=== PATIENT | male | born 2000 | race Caucasian/White ===

== ENCOUNTER 2024-04-24 09:15 | Emergency (ER) | payer OTHER, SELFPAY ==
--- NOTE | ~2024-04-24 | XR_ITS ---
EXAMINATION: XR chest 2V DATE: 04/24/2024 09:36 INDICATION: Chest pain. TECHNIQUE: Frontal and lateral views of the chest were obtained. COMPARISON: None. FINDINGS: There is no pneumonia, pleural effusion, or pneumothorax. The heart size is normal. IMPRESSION: 1. No acute cardiopulmonary disease. Reviewed, dictated and finalized at location A.
--- NOTE | ~2024-04-24 | CT_ITS ---
EXAMINATION: CT abdomen pelvis w con DATE: 04/24/2024 13:23 INDICATION: Right upper abdominal pain. Chest pain. Vomiting. TECHNIQUE: Computed tomography (CT) of the abdomen and pelvis was performed with 100 mL Omnipaque 350 intravenous contrast. Automated exposure control and iterative reconstruction technique were employe d. The dose-length product was 489.72 mGy-cm. COMPARISON: None. FINDINGS: The visualized portions of the lung bases demonstrate mild atelectasis. No pleural effusion . The heart size is normal. No pericardial effusion. There is a small sliding hiatal hernia. The live r, gallbladder, spleen, pancreas, adrenal glands, and kidneys are normal. There are bilateral inguina l hernias containing fat. There are no dilated loops of bowel. The appendix is normal. There are no p athologically enlarged lymph nodes. There is no free intraperitoneal fluid. There is mild lumbar spon dylosis. IMPRESSION: 1. Small sliding hiatal hernia. Reviewed, dictated and finalized at location A.
--- NOTE | 2024-04-24 09:16 | ECG_ITS ---
Test Date: 2024-04-24 09:23:57 Measurements Intervals [place] Rate: 71 P: 50 ME: 145 QRS: 52 QRSD: 102 T: 51 QT: 402 QTc: 437 Interpretive Statements SINUS RHYTHM WITH MARKED SINUS ARRHYTHMIA NORMAL ECG No previous ECG available for comparison Electronically Signed On 04-25-2024 08:47:14 CDT by Darrel Munson M.D.
[2024-04-24 09:21] VITALS: PULSE 88; RESP 16; TEMP 36.3; O2SAT 99
[2024-04-24 09:33] LABS: Basophils Absolute Auto 0.1 K/mm3 (0.0-0.1); Basophils Percent Auto 0.4 % (0.2-1.2); Hematocrit 47.8 % (42.0-52.0); Hemoglobin 17.2 g/dL (14.0-18.0); Immature Granulocyte Absolute 0.15 K/mm3 (0.00-0.031); Immature Granulocyte Percent A 0.7 % (0-0.5); Lymphocytes Absolute Auto 2.34 K/mm3 (0.9-3.2); Lymphocytes Percent Auto 10.8 % (18.3-44.2); Mean Corpuscular Hemoglobin 32.6 pg (26-34); Mean Corpuscular Volume 90.7 fl (80-100); Mean Platelet Volume 8.5 fl (7.4-10.4); Monocytes Absolute Auto 2.1 K/mm3 (0.1-0.6); Monocytes Percent Auto 9.7 % (2.6-8.5); Neutrophils Percent Auto 78.4 % (45.5-73.1); Platelet Count Result 386 k/mm3 (150-375); Red Blood Count 5.27 M/mm3 (4.6-6.20); Red Cell Distribution Width 13.3 % (11.5-14.5); White Blood Count 21.7 K/mm3 (4.5-10.0)
[2024-04-24 09:43] LABS: INR 0.9
[2024-04-24 09:44] LABS: Alanine Aminotransferase 31 U/L (6-50); Albumin Level 5.3 g/dL (3.5-5.1); Alkaline Phosphatase 121 U/L (38-126); Anion Gap 22 mmol/L (4-12); Aspartate Amino Transferase 37 U/L (17-59); Bilirubin,Total 1.6 mg/dL (0.2-1.3); Blood Urea Nitrogen 11 mg/dL (9-20); Calcium 10.1 mg/dL (8.4-10.2); Carbon Dioxide 17 mmol/L (22-30); Chloride 96 mmol/L (98-107); Estimated CRCL calculation 133 ml/min; Estimated Glomerular Filt Rate > 60; Glucose 123 mg/dL (65-110); Lipase 51 U/L (23-300); Partial Thromboplastin Time 25.6 Seconds (22.3-36.8); Potassium 3.1 mmol/L (3.4-5.0); Sodium 135 mmol/L (137-145)
[2024-04-24 09:56] LABS: Troponin I < 0.012 ng/mL (0.000-0.034)
[2024-04-24] MEDS: SODIUM CHLORIDE 0.9% IV 1,000 ML 999 ML IV CONT (10:15)
[2024-04-24] MEDS: MORPHINE SULFATE (*CRX) 4 MG/ML INJ IV PUSH (10:15)
[2024-04-24] MEDS: PANTOPRAZOLE SODIUM IV 40 MG VIAL IV PUSH (10:15)
[2024-04-24] MEDS: ONDANSETRON INJ 4 MG/2 ML VIAL IV PUSH (10:16)
--- NOTE | 2024-04-24 12:29 | ECG_ITS ---
Test Date: 2024-04-24 12:29:30 Measurements Intervals [place] Rate: 84 P: 50 CO: 120 QRS: 54 QRSD: 98 T: 54 QT: 410 QTc: 485 Interpretive Statements SINUS RHYTHM WITH MARKED SINUS ARRHYTHMIA NORMAL ELECTROCARDIOGRAM Compared to ECG 04/24/2024 09:23:57 No significant changes Electronically Signed On 04-25-2024 08:49:58 CDT by Darrel Munson M.D.
[2024-04-24] MEDS: LORazepam INJ (*CRX) 2 MG/ML VIAL 0.5 MG IV PUSH (12:45)
[2024-04-24 12:51] VITALS: BP 135/89; PULSE 68; RESP 20; O2SAT 100
[2024-04-24 13:10] LABS: Troponin I < 0.012 ng/mL (0.000-0.034)
[2024-04-24 14:13] LABS: Add Urine Microscopic? YES; Appearance Urine Clear (Clear); Bacteria Urine None Seen /hpf; Bilirubin Urine Negative (Negative); Blood Urine Negative (Negative); Color Urine Yellow (Yellow); Glucose Urine UA Negative (Negative); Ketones Urine 4+ mg/dL (Negative); Leukocyte Esterase Ur Negative LEU/UL (Negative); Nitrate Urine Negative (Negative); Non Pathogenic Casts 0-2; Protein Urine Trace mg/dL (Negative); RBC Urine 0-2 /hpf (0-2); Specific Grav Ur 1.045 (1.001-1.035); Squamous Epithelial Cell Urine None Seen /hpf (Few); Urobilinogen Urine 0.2 mg/dL (<2.0); WBC Urine 0-5 /hpf (0-3)
--- NOTE | 2024-04-24 14:34 | ED.GENADULT ---
HPI - General Adult General Chief complaint: Chest Pain Stated complaint: chest pain Time Seen by Provider: 04/24/24 09:17 History of Present Illness HPI narrative: Patient is a 23-year-old male who presents ER with multiple complaints. Is having epigastric pain chest pain. So she had with vomiting. Began overnight. Associated diarrhea. Reports he has been drinking hard liquor over last 4 days. He drinking a 750 mL bottle of vodka 2 nights ago. No blood in his stool or emesis. No history of alcohol withdrawal. Related Data Allergies Allergy/AdvReac Type Severity Reaction Status Date / Time No Known Allergies Allergy Verified 04/24/24 09:25 Review of Systems Review of Systems: All systems reviewed & are unremarkable except as noted in HPI and below Constitutional: Constitutional: Reports no additional constitutional complaints ENT: Reports system reviewed and no additional complaints, except as documented Cardiovascular: Cardiovascular: Reports no additional cardiovascular complaints Respiratory: Respiratory: Reports no additional respiratory complaints Gastrointestinal: Gastrointestinal: Reports abdominal pain, Reports diarrhea, Reports nausea and Reports vomiting Genitourinary: Genitourinary: Reports no additional male genitourinary complaints [facility] Past Medical History Medical History (Updated 04/24/24 @ 14:39 by Thom Hunt MD) Anxiety Surgical History Surgical History (Updated 04/24/24 @ 14:39 by Thom Hunt MD) No history of previous surgery Social History Social History (Updated 04/24/24 @ 14:39 by Thom Hunt MD) Alcohol intake: current Exam Narrative: GENERAL: Fatigue-appearing, well-nourished, and in no acute distress. HEAD: Normocephalic, atraumatic. ENT: Mucous membranes moist. NECK: Supple. CHEST: Clear to auscultation. No respiratory distress. HEART: Regular rate and rhythm. Normal peripheral pulses. ABDOMEN: Soft, nontender, nondistended. EXTREMITIES: Normal range of motion. No edema. SKIN: Warm, dry, no rash. NEURO: Alert and oriented x3. PSYCH: Normal mood and affect. Course Course Emergency Course: Patient resting comfortably. Feels improved after IV fluid and antiemetics as well as an anxiety medication. Educated about lab and imaging results. Vital Signs Vital signs: Vital Signs Temperature 97.4 F L 04/24/24 09:21 Pulse Rate 88 04/24/24 09:21 Respiratory Rate 16 04/24/24 09:21 Pulse Oximetry 99 04/24/24 09:21 Temperature 97.4 F L 04/24/24 09:21 Pulse Rate 68 04/24/24 12:51 Respiratory Rate 20 04/24/24 12:51 Blood Pressure 135/89 04/24/24 12:51 Pulse Oximetry 100 04/24/24 12:51 Medical Decision Making Vital Signs Vital Signs: Vital Signs Temperature 97.4 F L 04/24/24 09:21 Pulse Rate 88 04/24/24 09:21 Respiratory Rate 16 04/24/24 09:21 Pulse Oximetry 99 04/24/24 09:21 Temperature 97.4 F L 04/24/24 09:21 Pulse Rate 68 04/24/24 12:51 Respiratory Rate 20 04/24/24 12:51 Blood Pressure 135/89 04/24/24 12:51 Pulse Oximetry 100 04/24/24 12:51 Lab Data 04/24/24 09:29 04/24/24 09:29 Labs: Lab Results 04/24/24 04/24/24 04/24/24 Range/Units 09:29 12:43 14:03 WBC 21.7 H (4.5-10.0) K/mm3 RBC 5.27 (4.6-6.20) M/mm3 Hgb 17.2 (14.0-18.0) g/dL Hct 47.8 (42.0-52.0) % MCV 90.7 (80-100) fl MCH 32.6 (26-34) pg MCHC 36.0 (32-36) g/dl RDW 13.3 (11.5-14.5) % Plt Count 386 H (150-375) k/mm3 MPV 8.5 (7.4-10.4) fl Immature Gran % (Auto) 0.7 H (0-0.5) % Neut % (Auto) 78.4 H (45.5-73.1) % Lymph % (Auto) 10.8 L (18.3-44.2) % [place] % (Auto) 9.7 H (2.6-8.5) % Eos % (Auto) 0.0 (0-4.4) % Baso % (Auto) 0.4 (0.2-1.2) % Lymph # (Auto) 2.34 (0.9-3.2) K/mm3 [place] # (Auto) 2.1 H (0.1-0.6) K/mm3 Eos # (Auto) 0.0 (0-0.3) K/mm3 Baso # (Auto) 0.1 (
[2024-04-24 14:39] VITALS: BP 139/79; PULSE 77; RESP 16; TEMP 36.6; O2SAT 100
== END 2024-04-24 14:40 | disposition home or self-care (01) ==
PROVIDERS: Emergency Provider Emergency Medicine; PCP Physician Assistant
DX: R11.2 Nausea with vomiting, unspecified (principal); K44.9 Diaphragmatic hernia without obstruction or gangrene
CPT/HCPCS: 36415; 71046; 74177; 80053; 81001; 83690; 84484; 85025; 85610; 85730; 93005; 96361; 96374; 96375; 99284; J2060; J2270; J2405; J2470; J7030; Q9967

== ENCOUNTER 2024-08-20 12:18 | Emergency (ER) | payer OTHER, SELFPAY ==
--- NOTE | ~2024-08-20 | CT_ITS ---
EXAMINATION: CT abdomen pelvis w con DATE: 08/20/2024 14:36 INDICATION: Right upper quadrant abdominal pain TECHNIQUE: Computed tomography (CT) of the abdomen and pelvis was performed with 100 CC Omnipaque 350 intravenous contrast. Automated exposure control and iterative reconstruction technique were employe d. Exam dose: 386.49 mGy-cm total exam DLP. COMPARISON: 04/24/2024 CT abdomen pelvis FINDINGS: There is minimal atelectasis at the lung bases. No consolidation or mass density is noted i n the included lower lung zones. Normal heart size. No pericardial or pleural effusion. Small sliding hiatal hernia. No abnormal gallbladder dilatation, gallbladder wall thickening or pericholecystic fluid or fat stran ding. CT is not as sensitive as ultrasound for detection of gallstones. No hepatic, splenic, pancreatic, adrenal or renal space-occupying mass lesion is evident. No bile duct or pancreatic duct dilatation. No urinary tract calculus or hydroureteronephrosis. Normal caliber of the abdominal aorta. No intraperitoneal or retroperitoneal or pelvic mass lesion or adenopathy or ascites is detected. Bilateral small fat-containing inguinal hernias. Small fat-containing umbilical hernia. Normal appendix. No bowel obstruction, bowel wall thickening, pneumatosis or intraperitoneal free air is evident. Included skeletal structures are unremarkable. IMPRESSION: Normal appendix No gallbladder wall thickening or pericholecystic fluid or fat stranding. (Ultrasound would be more sensitive for detection of cholelithiasis). Small sliding hiatal hernia Bilateral small fat-containing inguinal hernias and small fat-containing umbilical hernia Reviewed, dictated and finalized at Location [facility]. Reviewed, dictated and finalized at location A. TER DISH CARRIER IMPRESSION: Normal appendix No gallbladder wall thickening or pericholecystic fluid or fat stranding. (Ultrasound would be more sensitive for detection of cholelithiasis). Small sliding hiatal hernia Bilateral small fat-containing inguinal hernias and small fat-containing umbili hector hernia
--- NOTE | ~2024-08-20 | XR_ITS ---
XR chest 2V DATE: 08/20/2024 12:56 INDICATION: Right chest pain, shortness of breath. Nausea, vomiting and diarrhea. TECHNIQUE: PA and lateral views COMPARISON: 04/24/2024 PA and lateral chest FINDINGS: Normal heart size. No hilar or mediastinal enlargement. No pulmonary infiltrate or consolid ation, pleural effusion or pulmonary vascular congestion or pneumothorax is detected. IMPRESSION: No active cardiopulmonary disease or significant change since 04/24/2024 Reviewed, dictated and finalized at location A. [place] G[employer] CARD MERCHANDISING IMPRESSION: No active cardiopulmonary disease or significant change since 024
--- NOTE | 2024-08-20 12:24 | ECG_ITS ---
Test Date: 2024-08-20 12:33:09 Measurements Intervals [place] Rate: 88 P: 59 [place]: 150 QRS: 59 QRSD: 95 T: 47 QT: 346 QTc: 419 Interpretive Statements SINUS RHYTHM WITH SINUS ARRHYTHMIA LEFT ATRIAL ENLARGEMENT INCOMPLETE RIGHT BUNDLE BRANCH BLOCK BASELINE ARTIFACT- V4-V5 BORDERLINE ECG Compared to ECG 04/24/2024 12:29:30 NO SIGNIFICANT CHANGE Electronically Signed On 08-20-2024 12:36:48 RECRUITING SCHEDULER by Huber Velez D.O.
--- NOTE | 2024-08-20 12:28 | ED_ITS ---
HPI - Chest Pain General Chief Complaint: Chest Pain Stated Complaint: Chest Pain Time Seen by Provider: 08/20/24 12:26 Source: patient and family History of Present Illness HPI narrative: 23 years old white male came to the ED by private car complaining of nausea and frequent vomiting, right lower ribs pain often on for the last 2 days. Patient is alcoholic, drinks hard liquor daily, smokes pot. His mom is telling me that he been drinking straight for the last 6 months. Does not have a job. Last drink was last night. His mom is telling me when he quit drinking he gets similar symptoms like today Related Data Allergies Allergy/AdvReac Type Severity Reaction Status Date / Time No Known Allergies Allergy Verified 08/20/24 12:18 Review of Systems Review of Systems: All systems reviewed & are unremarkable except as noted in HPI and below PMFSH Past Medical History Medical History Anxiety Surgical History Surgical History No history of previous surgery Social History Social History Alcohol intake: current Exam Narrative: General appearance: Well-developed, well-nourished Skin: Normal color Head: Normocephalic, nontraumatic Eyes: Clear conjunctiva ENT: Oropharynx normal, ears normal, nose normal Neck: Supple, nontender Chest and respiratory: Airway patent, no respiratory distress, no accessory muscle use Heart: Regular rate/rhythm Abdomen: Soft, nontender, no organomegaly, quiet bowel sounds Vascular: Normal peripheral pulses, normal capillary refill. Musculoskeletal: Normal range of motion, nontender back Neurologic: Alert and oriented ?3, HISTORICAL SOCIETY DIRECTOR is normal as tested, no gross motor deficit Course Vital Signs Vital signs: Vital Signs Temperature 36.4 C 08/20/24 12:33 Pulse Rate 91 08/20/24 12:33 Respiratory Rate 26 H 08/20/24 12:33 Blood Pressure 128/78 08/20/24 12:33 Pulse Oximetry 99 08/20/24 12:33 Oxygen Delivery Room Air 08/20/24 12:33 Temperature 36.4 C 08/20/24 12:33 Pulse Rate 97 08/20/24 15:05 Respiratory Rate 26 H 08/20/24 15:05 Blood Pressure 133/84 08/20/24 15:05 Pulse Oximetry 100 08/20/24 15:05 Oxygen Delivery Room Air 08/20/24 12:37 MDM - Chest Pain MDM Narrative Medical decision making narrative: PATIENT PRESENTS WITH NAUSEA AND VOMITING AND RIGHT CHEST PAIN. VITAL SIGNS ARE STABLE PHYSICAL EXAMINATION SHOWING ILL LOOKING PATIENT, HOLDING VOMITING BAG IN HAND. DIFFERENTIAL DIAGNOSIS ALCOHOL WITHDRAWAL, STRESS RELATED SYMPTOMS, CANNABIS HYPER EMESIS, ELECTROLYTE IMBALANCE, DEHYDRATION. BLOOD WORKUP TODAY INCLUDES CBC, CMP, LIPASE, ALCOHOL LEVEL, URINE DRUG SCREEN AND URINALYSIS SHOWED WBC 17.7, POTASSIUM 3.2, UP THE URINE POSITIVE FOR CANNABIS, OTHERWISE INSIGNIFICANT FINDINGS PATIENT TESTED NEGATIVE FOR FLU, COVID AND RSV CHEST X-RAY SHOWED NO ACUTE ABNORMALITY CT ABDOMEN AND PELVIS WITH IV CONTRAST SHOWED NO ACUTE ABDOMINAL PROCESS PATIENT'S SYMPTOM HIGH LIKELY SECONDARY TO STRESS, CANNABIS AND ALCOHOL WITHDRAWAL. PATIENT WAS ADVISED TO CONTACT CHEMICAL DEPENDENCE AND ST-T FOR ALCOHOL CESSATION PATIENT'S MOTHER AT THE BEDSIDE WHO AGREED WITH THE ABOVE. THE PT WAS DISCHARGED TO HOME.THE PT,S CONDITION UPON DISCHARGE WAS FAIR,EDUCATION WAS PROVIDED TO THE PT IN REFERENCE TO THE FINAL IMPRESSION,DISCHARGE STUDY RESULTS,TREATMENT,PROGNOSIS AND NEED FOR FOLLOW UP . Lab Data 08/20/24 12:44 08/20/24 12:44 Labs: Lab Results 08/20/24 08/20/24 08/20/24 Range/Units 12:44 14:49 14:52 WBC 17.7 H (4.5-10.0) K/mm3 RBC 5.29 (4.6-6.20) M/mm3 Hgb 17.7 (14.0-18.0) g/dL Hct 49.0 (42.0-52.0) % MCV 92.6 (80-100) fl MCH 33.5 (26-34) pg MCHC 36.1 H (32-36) g/dl RDW 12.6 (11.5-14.5) % Plt Count 371 (150-375) k/mm3 MPV 8.9 (7.4-10.4) fl Immature Gran % (Auto) 0.5 (0-0.5) % Neut % (Auto) 71.9 (45.5-73.1) % Lymph % (Auto) 16.8 L (18.3-44.2) % [place] % (Auto) 10.0 H (2.6-8.5) % Eos % (Auto) 0.1 (0-4.4) % Baso % (Auto) 0.7 (0.2-1.2) % Lymph # (Auto) 2.98 (0.9-3.2) K/mm3 [place] # (Auto) 1.8 H (0.1-0.6) K/mm3 Eos # (Auto) 0.0 (0-0.3) K/mm3 Baso # (Auto) 0.1 (0.0-0.1) K/mm3 Abs Immat Gran (auto) 0.09 H (0.00-0.031) K/mm3 Absolute Neuts (auto) 12.8 H (1.3-6.7) K/mm3 Absolute Nucleated RBC 0.000 (0.0-0.012) K/mm3 Nucleated RBC % 0.0 (0.0-0.2) % PT 13.4 (11.1-14.7) Seconds INR 1.0 APTT 24.0 (22.3-36.8) Seconds Sodium 137 (137-145) mmol/L Potassium 3.2 L (3.4-5.0) mmol/L Chloride 95 L (98-107) mmol/L Carbon Dioxide 26 (22-30) mmol/L Anion Gap 16 H (4-12) mmol/L BUN 7 L (9-20) mg/dL Creatinine 1.00 (0.7-1.3) mg/dL Estim Creat Clear Calc 108 ml/min Estimated GFR > 60 (59 - ) Glucose 145 H (65-110) mg/dL Calcium 9.9 (8.4-10.2) mg/dL Total Bilirubin 1.2 (0.2-1.3) mg/dL AST 34 (17-59) U/L ALT 29 (6-50) U/L Alkaline Phosphatase 112 (38-126) U/L Troponin I < 0.012 (0.000-0.034) ng/mL Total Protein 9.0 H (6.3-8.2) g/dL Albumin 5.1 (3.5-5.1) g/dL Lipase 48 (23-300) U/L Urine Opiates Screen Negative (Negative) Urine Methadone Screen Negative (Negative) Ur Barbiturates Screen Negative (Negative) Ur Phencyclidine Scrn Negative (Negative) Ur Amphetamine Screen Negative (Negative) U Benzodiazepines Scrn Negative (Negative) Urine Cocaine Screen Negative (Negative) U Cannabinoids Screen Positive A (Negative) Ethyl Alcohol < 10 (<10) mg/dL Influenza A (RT-PCR) Pending Influenza B (RT-PCR) Pending RSV (RT-PCR) Pending SARS-CoV-2 RNA (RT-PCR) Pending 08/20/24 Range/Units 15:50 WBC (4.5-10.0) K/mm3 RBC (4.6-6.20) M/mm3 Hgb (14.0-18.0) g/dL Hct (42.0-52.0) % MCV (80-100) fl MCH (26-34) pg MCHC (32-36) g/dl RDW (11.5-14.5) % Plt Count (150-375) k/mm3 MPV (7.4-10.4) fl Immature Gran % (Auto) (0-0.5) % Neut % (Auto) (45.5-73.1) % Lymph % (Auto) (18.3-44.2) % [place] % (Auto) (2.6-8.5) % Eos % (Auto) (0-4.4) % Baso % (Auto) (0.2-1.2) % Lymph # (Auto) (0.9-3.2) K/mm3 [place] # (Auto) (0.1-0.6) K/mm3 Eos # (Auto) (0-0.3) K/mm3 Baso # (Auto) (0.0-0.1) K/mm3 Abs Immat Gran (auto) (0.00-0.031) K/mm3 Absolute Neuts (auto) (1.3-6.7) K/mm3 Absolute Nucleated RBC (0.0-0.012) K/mm3 Nucleated RBC % (0.0-0.2) % PT (11.1-14.7) Seconds INR APTT (22.3-36.8) Seconds Sodium (137-145) mmol/L Potassium (3.4-5.0) mmol/L Chloride (98-107) mmol/L Carbon Dioxide (22-30) mmol/L Anion Gap (4-12) mmol/L BUN (9-20) mg/dL Creatinine (0.7-1.3) mg/dL Estim Creat Clear Calc ml/min Estimated GFR (59 - ) Glucose (65-110) mg/dL Calcium (8.4-10.2) mg/dL Total Bilirubin (0.2-1.3) mg/dL AST (17-59) U/L ALT (6-50) U/L Alkaline Phosphatase (38-126) U/L Troponin I < 0.012 (0.000-0.034) ng/mL Total Protein (6.3-8.2) g/dL Albumin (3.5-5.1) g/dL Lipase (23-300) U/L Urine Opiates Screen (Negative) Urine Methadone Screen (Negative) Ur Barbiturates Screen (Negative) Ur Phencyclidine Scrn (Negative) Ur Amphetamine Screen (Negative) U Benzodiazepines Scrn (Negative) Urine Cocaine Screen (Negative) U Cannabinoids Screen (Negative) Ethyl Alcohol (<10) mg/dL Influenza A (RT-PCR) Influenza B (RT-PCR) RSV (RT-PCR) SARS-CoV-2 RNA (RT-PCR) Imaging Data Radiologist's impression: Impressions Chest X-Ray 08/20/24 12:59 IMPRESSION: No active cardiopulmonary disease or significant change since 04/24/2024 Abdomen/Pelvis CT 08/20/24 14:41 IMPRESSION: Normal appendix No gallbladder wall thickening or pericholecystic fluid or fat stranding. (Ultrasound would be more sensitive for detection of cholelithiasis). Small sliding hiatal hernia Bilateral small fat-containing inguinal hernias and small fat-containing umbilical hernia Critical Care Time Critical Care Time Critical Care Time: Yes Total Critical Care Time: 30 Discharge Plan Discharge Clinical Impression: Chest pain, Alcoholic, Cannabis abuse, Vomiting Patient Disposition: Home, Self-Care Condition: Improved Instructions: Hypokalemia (ED), Abuse of Alcohol (DC), Acute Nausea and Vomiting (DC), Cannabis Use Disorder (ED) Additional Instructions: RETURN IF SYMPTOMS ARE WORSENING , CALL YOUR FAMILY PHYSICIAN FOR APPOINTMENT, TAKE TYLENOL NEEDED FOR ACHES AND PAIN, CONTINUE HOME MEDICATIONS. FOLLOW-UP WITH THE ALCOHOL AND CHEMICAL DEPENDENCY PROGRAM Prescriptions: New potassium chloride 20 mEq tablet extended release 20 meq PO BID Qty: 10 0RF ondansetron 4 mg tablet,disintegrating 4 mg PO Q4H 0 Days Qty: 10 0RF Rx Instructions: give 1st dose 30min before emetogenic chemo No Action ondansetron 4 mg tablet,disintegrating 4 mg PO Q6H PRN (Reason: nausea and vomiting) Qty: 10 0RF pantoprazole [Protonix] 20 mg tablet,delayed release (DR/EC) 20 mg PO HS 28 Days Qty: 28 0RF Follow-up/Referrals: Mao,LILLIAN Mahoney [Primary Care Provider] -
[2024-08-20 12:33] VITALS: BP 128/78; PULSE 91; RESP 26; TEMP 36.4; O2SAT 99
[2024-08-20 13:07] LABS: Basophils Absolute Auto 0.1 K/mm3 (0.0-0.1); Basophils Percent Auto 0.7 % (0.2-1.2); Eosinophils Percent Auto 0.1 % (0-4.4); Hemoglobin 17.7 g/dL (14.0-18.0); Immature Granulocyte Absolute 0.09 K/mm3 (0.00-0.031); Immature Granulocyte Percent A 0.5 % (0-0.5); Lymphocytes Absolute Auto 2.98 K/mm3 (0.9-3.2); Lymphocytes Percent Auto 16.8 % (18.3-44.2); Mean Corpuscular HGB Conc 36.1 g/dl (32-36); Mean Corpuscular Hemoglobin 33.5 pg (26-34); Mean Corpuscular Volume 92.6 fl (80-100); Mean Platelet Volume 8.9 fl (7.4-10.4); Monocytes Absolute Auto 1.8 K/mm3 (0.1-0.6); Neutrophils Absolute Auto 12.8 K/mm3 (1.3-6.7); Neutrophils Percent Auto 71.9 % (45.5-73.1); Platelet Count Result 371 k/mm3 (150-375); Red Blood Count 5.29 M/mm3 (4.6-6.20); Red Cell Distribution Width 12.6 % (11.5-14.5); White Blood Count 17.7 K/mm3 (4.5-10.0)
[2024-08-20] MEDS: SODIUM CHLORIDE 0.9% IV 1,000 ML 999 ML IV CONT ×2 (13:12→14:45)
[2024-08-20] MEDS: ONDANSETRON INJ 4 MG/2 ML VIAL IV PUSH (13:12)
[2024-08-20 13:15] LABS: Alanine Aminotransferase 29 U/L (6-50); Albumin Level 5.1 g/dL (3.5-5.1); Alkaline Phosphatase 112 U/L (38-126); Anion Gap 16 mmol/L (4-12); Aspartate Amino Transferase 34 U/L (17-59); Bilirubin,Total 1.2 mg/dL (0.2-1.3); Blood Urea Nitrogen 7 mg/dL (9-20); Calcium 9.9 mg/dL (8.4-10.2); Carbon Dioxide 26 mmol/L (22-30); Chloride 95 mmol/L (98-107); Estimated CRCL calculation 108 ml/min; Estimated Glomerular Filt Rate > 60; Glucose 145 mg/dL (65-110); Lipase 48 U/L (23-300); Potassium 3.2 mmol/L (3.4-5.0); Sodium 137 mmol/L (137-145)
[2024-08-20 13:16] LABS: Ethanol < 10 mg/dL (<10)
[2024-08-20 13:18] LABS: Prothrombin Time 13.4 Seconds (11.1-14.7)
[2024-08-20 13:25] LABS: Troponin I < 0.012 ng/mL (0.000-0.034)
[2024-08-20] MEDS: METOCLOPRAMIDE HCL 10 MG TABLET PO (14:46)
[2024-08-20] MEDS: diphenhydrAMINE HCl INJ 50 MG/ML VIAL IV PUSH (14:46)
[2024-08-20 15:05] VITALS: BP 133/84; PULSE 97; RESP 26; O2SAT 100
[2024-08-20 15:12] LABS: Amphetamine Screen Urine Negative (Negative); Barbiturate Screen Urine Negative (Negative); Benzodiazepines Screen Urine Negative (Negative); Cannabinoid Screen Urine Positive (Negative); Cocaine Screen Urine Negative (Negative); Methadone Screen Urine Negative (Negative); Opiate Screen Urine Negative (Negative); Phencyclidine Screen Urine Negative (Negative)
--- NOTE | 2024-08-20 15:46 | ECG_ITS ---
Test Date: 2024-08-20 15:54:55 Measurements Intervals [place] Rate: 81 P: 55 IA: 151 QRS: 64 QRSD: 107 T: 54 QT: 394 QTc: 459 Interpretive Statements SINUS RHYTHM WITH MARKED SINUS ARRHYTHMIA POSSIBLE LEFT ATRIAL ENLARGEMENT INCOMPLETE RIGHT BUNDLE BRANCH BLOCK BORDERLINE ECG Compared to ECG 08/20/2024 12:33:09 No significant changes Electronically Signed On 08-20-2024 19:25:48 GENERAL OPERATOR by Huber Velez D.O.
[2024-08-20 16:22] LABS: Troponin I < 0.012 ng/mL (0.000-0.034)
[2024-08-20 17:04] LABS: Influenza A QL RT-PCR Negative (Negative); Influenza B QL RT-PCR Negative (Negative); RSV RNA, RT-PCR Negative (Negative); SARS-CoV-2 RNA PCR Negative (Negative)
[2024-08-20] MEDS: POTASSIUM CHLORIDE 20 MEQ ER TABLET 40 MEQ PO (17:21)
[2024-08-20] MEDS: LORazepam INJ (*CRX) 2 MG/ML VIAL 1 MG IV PUSH (17:22)
== END 2024-08-20 17:30 | disposition home or self-care (01) ==
PROVIDERS: Emergency Provider Emergency Medicine; PCP Physician Assistant
DX: R07.9 Chest pain, unspecified (principal); F10.20 Alcohol dependence, uncomplicated; F12.10 Cannabis abuse, uncomplicated; R11.2 Nausea with vomiting, unspecified; Z20.822 Contact with and (suspected) exposure to COVID-19
CPT/HCPCS: 36415; 71046; 74177; 80053; 80307; 82077; 83690; 84484; 85025; 85610; 85730; 87637; 93005; 96361; 96374; 96375; 99284; A9270; J1200; J2060; J2405; J7030; Q9967

== ENCOUNTER 2024-11-20 08:52 | Observation (INO) | payer OTHER, SELFPAY ==
[2024-11-20] VITALS (10 sets, daily range): BP systolic 107–149; BP diastolic 59–95; PULSE 92–115; RESP 16–20; TEMP 36.4–37.2; O2SAT 96–100; BMI 22.7
[2024-11-20 10:03] LABS: Basophils Absolute Auto 0.1 K/mm3 (0.0-0.1); Basophils Percent Auto 0.3 % (0.2-1.2); Hematocrit 44.8 % (42.0-52.0); Hemoglobin 16.5 g/dL (14.0-18.0); Immature Granulocyte Absolute 0.15 K/mm3 (0.00-0.031); Immature Granulocyte Percent A 0.6 % (0-0.5); Lymphocytes Absolute Auto 2.13 K/mm3 (0.9-3.2); Mean Corpuscular HGB Conc 36.8 g/dl (32-36); Mean Corpuscular Hemoglobin 33.2 pg (26-34); Mean Corpuscular Volume 90.1 fl (80-100); Mean Platelet Volume 8.8 fl (7.4-10.4); Monocytes Absolute Auto 2.3 K/mm3 (0.1-0.6); Monocytes Percent Auto 8.5 % (2.6-8.5); Neutrophils Absolute Auto 21.8 K/mm3 (1.3-6.7); Neutrophils Percent Auto 82.6 % (45.5-73.1); Platelet Count Result 402 k/mm3 (150-375); Red Blood Count 4.97 M/mm3 (4.6-6.20); Red Cell Distribution Width 12.8 % (11.5-14.5); White Blood Count 26.5 K/mm3 (4.5-10.0)
[2024-11-20 10:09] LABS: Alanine Aminotransferase 37 U/L (6-50); Albumin Level 5.1 g/dL (3.5-5.1); Alkaline Phosphatase 84 U/L (38-126); Anion Gap 19 mmol/L (4-12); Aspartate Amino Transferase 31 U/L (17-59); Blood Urea Nitrogen 18 mg/dL (9-20); Calcium 9.5 mg/dL (8.4-10.2); Carbon Dioxide 33 mmol/L (22-30); Chloride 78 mmol/L (98-107); Estimated CRCL calculation 146 ml/min; Estimated Glomerular Filt Rate > 60; Glucose 105 mg/dL (65-110); Lipase 47 U/L (23-300); Potassium 2.9 mmol/L (3.4-5.0); Sodium 130 mmol/L (137-145)
--- NOTE | 2024-11-20 10:20 | ED.NAVMDI ---
HPI - Nausea/Vomiting/Diarrhea General Chief complaint: Nausea/Vomiting/Diarrhea Stated complaint: n/v Time Seen by Provider: 11/20/24 09:02 Source: patient Mode of arrival: ambulatory Limitations: no limitations History of Present Illness HPI Narrative: 24 years old white male lives with his mom came to the emergency room by private car because of vomiting. Patient's mom telling me that patient quit drinking alcohol for the last 5 days been having headache, vomiting, chest pain, dry heaving, unable to eat or drink, restless. Patient does not have a job, his mom by him vodka daily to avoid alcohol withdrawal. Could not by vodka in the last 5 days. PATIENT MAIN COMPLAINT AT THIS TIME HICCUPS AND INABILITY TO GET ENOUGH SLEEP Related Data Allergies Allergy/AdvReac Type Severity Reaction Status Date / Time No Known Allergies Allergy Verified 11/20/24 09:07 Review of Systems Review of Systems: All systems reviewed & are unremarkable except as noted in HPI and below PMFSH Past Medical History Medical History Anxiety Surgical History Surgical History No history of previous surgery Social History Social History Alcohol intake: current Exam Narrative: General appearance: Well-developed, well-nourished Skin: Normal color Head: Normocephalic, nontraumatic Eyes: Clear conjunctiva ENT: Oropharynx normal, ears normal, nose normal Neck: Supple, nontender Chest and respiratory: Airway patent, no respiratory distress, no accessory muscle use Heart: Regular rate/rhythm Abdomen: Soft, nontender, no organomegaly, quiet bowel sounds Vascular: Normal peripheral pulses, normal capillary refill. Musculoskeletal: Normal range of motion, nontender back Neurologic: Alert and oriented ?3, [employer] is normal as tested, no gross motor deficit Course Vital Signs Vital signs: Vital Signs Temperature 36.4 C 11/20/24 09:00 Pulse Rate 92 11/20/24 09:00 Respiratory Rate 16 11/20/24 09:00 Blood Pressure 126/87 11/20/24 09:00 Pulse Oximetry 100 11/20/24 09:00 Oxygen Delivery Room Air 11/20/24 09:00 Temperature 36.4 C 11/20/24 09:00 Pulse Rate 101 H 11/20/24 12:04 Respiratory Rate 20 11/20/24 12:04 Blood Pressure 149/95 H 11/20/24 12:04 Pulse Oximetry 97 11/20/24 12:04 Oxygen Delivery Room Air 11/20/24 09:00 MDM - Nausea/Vomiting/Diarrhea MDM Narrative Medical decision making narrative: PATIENT CAME WITH POSSIBLE ALCOHOL WITHDRAWAL SYMPTOMS, HIS MAIN COMPLAINT HICCUPS AND INABILITY TO SLEEP, LAST DRINK 5-6 DAYS AGO VITAL SIGNS ARE STABLE PHYSICAL EXAMINATION SHOWING COMFORTABLE PATIENT NOT IN ANY PAIN OR DISTRESS WITH INTERMITTENT HICCUPS DIFFERENTIAL DIAGNOSIS ALCOHOL WITHDRAWAL, ELECTROLYTE IMBALANCE, DEHYDRATION, ALCOHOLIC HEPATITIS BLOOD WORKUP TODAY INCLUDES CBC, CMP, LIPASE, ALCOHOL LEVEL SHOWED WBC OF 26.5, PLATELET 4O2, SODIUM 130, POTASSIUM 2.9, ANION GAP 19, URINALYSIS SHOWED 4+ KETONES ALCOHOL LEVEL LESS THAN 10 A CHEST X-RAY SHOWED NO ACUTE ABNORMALITIES, CT ABDOMEN AND PELVIS WITH IV CONTRAST SHOWED NO ACUTE ABNORMALITIES. DIAGNOSIS: REACTIVE LEUKOCYTOSIS ALCOHOL WITHDRAWAL, HYPONATREMIA, HYPOKALEMIA. ADMIT TO HOSPITALIST Differential Diagnosis Differential diagnosis: Likely other ( ABOVE) Medical Records Attestation: I reviewed the patient's medical records. Lab Data Attestation: I reviewed the patient's lab results. 11/20/24 09:53 11/20/24 09:53 Labs: Lab Results 11/20/24 11/20/24 11/20/24 Range/Units 09:52 09:53 11:05 WBC 26.5 H (4.5-10.0) K/mm3 RBC 4.97 (4.6-6.20) M/mm3 Hgb 16.5 (14.0-18.0) g/dL Hct 44.8 (42.0-52.0) % MCV 90.1 (80-100) fl MCH 33.2 (26-34) pg MCHC 36.8 H (32-36) g/dl RDW 12.8 (11.5-14.5) % Plt Count 402 H (150-375) k/mm3 MPV 8.8 (7.4-10.4) fl Immature Gran % (Auto) 0.6 H (0-0.5) % Neut % (Auto) 82.6 H (45.5-73.1) % Lymph % (Auto) 8.0 L (18.3-44.2) % Bailey % (Auto) 8.5 (2.6-8.5) % Eos % (Auto) 0.0 (0-4.4) % Baso % (Auto) 0.3 (0.2-1.2) % Lymph # (Auto) 2.13 (0.9-3.2) K/mm3 Bailey # (Auto) 2.3 H (0.1-0.6) K/mm3 Eos # (Auto) 0.0 (0-0.3) K/mm3 Baso # (Auto) 0.1 (0.0-0.1) K/mm3 Abs Immat Gran (auto) 0.15 H (0.00-0.031) K/mm3 Absolute Neuts (auto) 21.8 H (1.3-6.7) K/mm3 Absolute Nucleated RBC 0.000 (0.0-0.012) K/mm3 Nucleated RBC % 0.0 (0.0-0.2) % Sodium 130 L (137-145) mmol/L Potassium 2.9 L (3.4-5.0) mmol/L Chloride 78 L (98-107) mmol/L Carbon Dioxide 33 H (22-30) mmol/L Anion Gap 19 H (4-12) mmol/L BUN 18 D (9-20) mg/dL Creatinine 0.74 (0.7-1.3) mg/dL Estim Creat Clear Calc 146 ml/min Estimated GFR > 60 (59 - ) Glucose 105 (65-110) mg/dL Calcium 9.5 (8.4-10.2) mg/dL Total Bilirubin 1.0 (0.2-1.3) mg/dL AST 31 (17-59) U/L ALT 37 (6-50) U/L Alkaline Phosphatase 84 (38-126) U/L Total Protein 9.0 H (6.3-8.2) g/dL Albumin 5.1 (3.5-5.1) g/dL Lipase 47 (23-300) U/L Urine Color Dark yellow (Yellow) Urine Appearance Clear (Clear) Urine pH 6.0 (5.0-9.0) Ur Specific [place] 1.033 (1.001-1.035) Urine Protein 1+ H (Negative) mg/dL Urine Glucose (UA) Negative (Negative) mg/dL Urine Ketones 4+ H (Negative) mg/dL Ur Blood (Man) Negative (Negative) Urine Nitrate Negative (Negative) Urine Bilirubin 2+ H (Negative) Urine Urobilinogen 1.0 (<2.0) mg/dL Leukocyte Esterase Rfl Negative (Negative) SELAM/UL Urine RBC 3-5 H (0-2) /hpf Urine WBC 0-5 (0-3) /hpf Ur Squamous Epith Cells None seen (Few) /hpf Urine Bacteria None seen /hpf Urine Casts 3-5 Urine Opiates Screen Negative (Negative) Urine Methadone Screen Negative (Negative) Ur Barbiturates Screen Negative (Negative) Ur Phencyclidine Scrn Negative (Negative) Ur Amphetamine Screen Negative (Negative) U Benzodiazepines Scrn Negative (Negative) Urine Cocaine Screen Negative (Negative) U Cannabinoids Screen Positive A (Negative) Ethyl Alcohol < 10 (<10) mg/dL Imaging Data Radiologist's impression: Impressions Chest X-Ray 11/20/24 12:14 IMPRESSION: 1. No acute cardiopulmonary disease. Abdomen/Pelvis CT 11/20/24 12:30 IMPRESSION: 1. No acute intra-abdominal/pelvic process. 2. Small sliding-type hiatal hernia. Critical Care Time Critical Care Time Critical Care Time: Yes Total Critical Care Time: 30 Discharge Plan Discharge Clinical Impression: Alcohol withdrawal, Acute hyponatremia, Acute hypokalemia, Leukocytosis Patient Disposition: Still a Patient Condition: Guarded Prognosis Patient Language: Kazakh Prescriptions: No Action ondansetron 4 mg tablet,disintegrating 4 mg PO Q6H PRN (Reason: nausea and vomiting) Qty: 10 0RF pantoprazole [Protonix] 20 mg tablet,delayed release (DR/EC) 20 mg PO HS 28 Days Qty: 28 0RF potassium chloride 20 mEq tablet extended release 20 meq PO BID Qty: 10 0RF ondansetron 4 mg tablet,disintegrating 4 mg PO Q4H 0 Days Qty: 10 0RF Rx Instructions: give 1st dose 30min before emetogenic chemo Follow-up/Referrals: Mao,LILLIAN Mahoney [Primary Care Provider] -
[2024-11-20 10:43] LABS: Ethanol < 10 mg/dL (<10)
[2024-11-20] MEDS: THIAMINE HCL INJ 100 MG, FOLIC ACID INJ 1 MG, MAGNESIUM SULFATE INJ 1 GM, MULTIVITAMINS... IV CONT (11:16)
[2024-11-20 11:35] LABS: Add Urine Microscopic? YES; Appearance Urine Clear (Clear); Bacteria Urine None Seen /hpf; Bilirubin Urine 2+ (Negative); Blood Urine Negative (Negative); Color Urine Dark Yellow (Yellow); Glucose Urine UA Negative (Negative); Ketones Urine 4+ mg/dL (Negative); Leukocyte Esterase Ur Negative LEU/UL (Negative); Nitrate Urine Negative (Negative); Protein Urine 1+ mg/dL (Negative); Specific Grav Ur 1.033 (1.001-1.035); Squamous Epithelial Cell Urine None Seen /hpf (Few); WBC Urine 0-5 /hpf (0-3)
[2024-11-20] MEDS: LORazepam INJ (*CRX) 2 MG/ML VIAL IV PUSH (11:58)
[2024-11-20] MEDS: POTASSIUM CHLORIDE 20 MEQ PACKET (FOR LIQUID) 40 MEQ PO (11:58)
[2024-11-20 12:15] LABS: Amphetamine Screen Urine Negative (Negative); Barbiturate Screen Urine Negative (Negative); Benzodiazepines Screen Urine Negative (Negative); Cannabinoid Screen Urine Positive (Negative); Cocaine Screen Urine Negative (Negative); Methadone Screen Urine Negative (Negative); Opiate Screen Urine Negative (Negative); Phencyclidine Screen Urine Negative (Negative)
--- NOTE | 2024-11-20 16:05 | PM.IMHP ---
H&P: HPI History of Present Illness Date/Time: 11/20/24 16:05 Chief Complaint: N/V/alcohol withdrawal Narrative: Patient is a 24-year-old male presented to the emergency department with his mother reporting alcohol withdrawal symptoms. Patient and mother both report patient has history of binge drinking and attempted to stop drinking 5 days ago however has had a constant nausea vomiting and inability to keep any oral intake down. Patient also reporting severe anxiety and palpitations with fevers, chills and diaphoresis. There was reported patient drinks a 5th of vodka daily when on his drinking binge he states he has been intermittently drinking due to his severe anxiety and depression was previously on Effexor and Seroquel but abruptly stop them both when he began drinking again. Patient reported he attempted to alleviate his symptoms with smoking marijuana and eating marijuana gummies but had no relief. Patient was found to have a WBC of 26.5 likely reactive, hypokalemia, hyponatremia secodnary to dehydration and was positive for cannabis. Patient was then admitted to the medical unit for further evaluation and treatment alcohol withdrawal may have some underlying Cannibis induced hyperemesis. Viral panel not complete ordered and pending. Review of Systems Review of Systems: All systems reviewed & are unremarkable except as noted in HPI and below PMFSH Past Medical History Medical History (Updated 11/20/24 @ 16:12 by Yumiko Miner APRN) Depression Anxiety Surgical History Surgical History No history of previous surgery Social History Social History Alcohol intake: current Meds Home Medications and Allergies Home Medications ?Medication ?Instructions ?Recorded ?Confirmed ?Type ondansetron 4 mg disintegrating 4 mg PO Q6H PRN nausea and 04/24/24 Rx tablet vomiting #10 tabs pantoprazole 20 mg tablet,delayed 20 mg PO HS 4 weeks #28 tabs 04/24/24 Rx release (Protonix) ondansetron 4 mg disintegrating 4 mg PO Q4H 3 doses #10 tabs 08/20/24 Rx tablet potassium chloride 20 mEq 20 meq PO BID #10 tabs 08/20/24 Rx tablet,extended release Allergies Allergy/AdvReac Type Severity Reaction Status Date / Time No Known Allergies Allergy Verified 11/20/24 09:07 Vital Signs Vital Signs - 24 hr 11/20/24 09:00 11/20/24 10:10 11/20/24 10:11 Temperature 97.6 F Pulse Rate 92 100 97 Respiratory Rate 16 Blood Pressure 126/87 136/90 127/90 Pulse Oximetry 100 Oxygen Delivery Room Air 11/20/24 10:11 11/20/24 11:19 11/20/24 12:04 Temperature Pulse Rate 100 92 101 H Respiratory Rate 18 20 Blood Pressure 120/93 H 134/83 149/95 H Pulse Oximetry 96 97 Oxygen Delivery 11/20/24 15:39 Temperature Pulse Rate 100 Respiratory Rate 20 Blood Pressure 149/59 H Pulse Oximetry 99 Oxygen Delivery Exam Narrative: GENERAL: Alert and oriented x 3. No acute distress. Mother at bedside providing most of the information EYES: PERRLA. HEENT: Dry mucous membranes. LUNGS: Clear to auscultation bilaterally. No accessory muscle use. CARDIOVASCULAR: Regular rate and rhythm. No murmur. No JVD. S1-S2 ABDOMEN: Soft, tender and non-distended. No palpable masses. EXTREMITIES: No edema. Non-tender SKIN: No rashes or lesions. Skin warm, dry. NEUROLOGIC: No focal neurological deficits. CN II-XII grossly intact PSYCHIATRIC: Withdrawn mood and affect. Minimal eye contact H&P: Results Labs Labs: Short CBC 11/20/24 Range/Units 09:53 WBC 26.5 H (4.5-10.0) K/mm3 Hgb 16.5 (14.0-18.0) g/dL Hct 44.8 (42.0-52.0) % Plt Count 402 H (150-375) k/mm3 [facility] 11/20/24 09:53 Sodium 130 L Potassium 2.9 L Chloride 78 L Carbon Dioxide 33 H BUN 18 D Creatinine 0.74 Glucose 105 Calcium 9.5 Liver Function 11/20/24 Range/Units 09:53 Total Bilirubin 1.0 (0.2-1.3) mg/dL AST 31 (17-59) U/L ALT 37 (6-50) U/L Alkaline Phosphatase 84 (38-126) U/L Albumin 5.1 (3.5-5.1) g/dL Urine 11/20/24 Range/Units 11:05 Urine Color Dark yellow (Yellow) Urine Appearance Clear (Clear) Urine pH 6.0 (5.0-9.0) Ur Specific [place] 1.033 (1.001-1.035) Urine Protein 1+ H (Negative) mg/dL Urine Glucose (UA) Negative (Negative) mg/dL Imaging CT scan - abdomen: Radiologist's impression: EXAMINATION: CT abdomen pelvis w con DATE: 11/20/2024 12:23 INDICATION: Vomiting. Epigastric pain. Alcohol withdrawal. TECHNIQUE: Computed tomography (CT) of the abdomen and pelvis was performed with 100 mL Omnipaque-350 intravenous contrast. Automated exposure control and iterative reconstruction technique were employed. The dose-length product was 267.04 mGy-cm. COMPARISON: None FINDINGS: Lung bases are clear. Heart size is normal. No pericardial or pleural effusion. Small sliding-type hiatal hernia. Liver, gallbladder, spleen, pancreas, bilateral adrenal glands and kidneys are normal. Bladder is normal. Bowels including the appendix are normal. No free intraperitoneal gas or fluid. No pathologically enlarged abdominal or pelvic lymphadenopathy. Bones are unremarkable. IMPRESSION: 1. No acute intra-abdominal/pelvic process. 2. Small sliding-type hiatal hernia. Assessment and Plan Assessment and plan (1) Alcohol withdrawal: Code(s): F10.939 - Alcohol use, unspecified with withdrawal, unspecified Status: Acute Assessment and Plan: Patient reports drinking vodka intermittently patient states he goes on binges for months and then stops ETOH<10 Last drink 11/12 Banana bag/IV fluids Thiamine, folic acid, and multi-vitamin PPI daily Librium 50mg Q6hr and taper down Ativan PRN for seizure activity WA daily Monitor and replenish electrolytes as needed Seizure precautions if indicated trazodone PRN Requip Antiemetics Care coordination to assist with rehab facilities information (2) Acute hyponatremia: Code(s): E87.1 - Hypo-osmolality and hyponatremia Status: Acute Assessment and Plan: Secondary to alcohol withdrawal and dehydration with continued nausea vomiting IV fluids Replenish electrolytes Follow-up labs in the a.m. 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 and to resume medications (4) Anxiety: Code(s): F41.9 - Anxiety disorder, unspecified Status: Acute Assessment and Plan: see Above #2 (5) Acute hypokalemia: Code(s): E87.6 - Hypokalemia Status: Acute Assessment and Plan: Potassium 2.9 POA 80meq replenished monitor and replenish as needed cardiac monitoring (6) Leukocytosis: Code(s): D72.829 - Elevated white blood cell count, unspecified Status: Acute Assessment and Plan: WBC 25.6 POA likely reactive Viral panel pending (7) Cannabis abuse: Code(s): F12.10 - Cannabis abuse, uncomplicated Status: Inactive Assessment and Plan: May be some underlying cannabis induced hyperemesis Encouraged cessation Antiemetics Plan Code status: Full code per patient DVT prophylaxis: Lovenox Stress ulcer prophylaxis: Protonix 40 daily PT/OT notes: Ambulatory Disposition: Patient continues admission for alcohol withdrawal plan to return home with mother when medically stable at discharge will provide patient rehab resources. Quality VTE Prophylaxis VTE prophylaxis: pharmacologic ordered -Patient's previous records reviewed on admission -ER notes reviewed in detail on admission -discussed all findings and current treatment plan with patient/Family/POA -Consultations reviewed for recommendations -Patient's disposition for safe discharge discussed with case resolution specialist Dictation performed by [employer] direct speech recognition software, therefore machine staker variants and typographical errors may occur. Hospitalist [facility] Advance Care Plan I have confirmed that the patient's Advanced Care Plan is present, code status is documented, or surrogate decision maker is listed in patient medical record.: Yes Medication Reconciliation I have utilized all available resources to obtain, update and review the patients current medications (includes all prescriptions, OTC, herbals, cannabis, and nutritional supplements).: Yes The patient is not eligible for med reconciliation; the patient is in a emergent medical situation where delaying treatment would jeopardize the patients health.: No
[2024-11-20] MEDS: POTASSIUM CHLORIDE INJ 40 MEQ in SODIUM CHLORIDE 0.9% IV 500 ML 130 MEQ IVPB (16:50)
[2024-11-20] MEDS: SODIUM CHLORIDE 0.9% IV 1,000 ML 150 ML IV CONT (16:50)
[2024-11-20] MEDS: POTASSIUM CHLORIDE 20 MEQ ER TABLET 40 MEQ PO (16:52)
[2024-11-20 17:48] LABS: Influenza A QL RT-PCR Negative (Negative); Influenza B QL RT-PCR Negative (Negative); RSV RNA, RT-PCR Negative (Negative); SARS-CoV-2 RNA PCR Negative (Negative)
[2024-11-20] MEDS: chlordiazePOXIDE (*CRX) 25 MG CAPSULE 50 MG PO (18:30)
[2024-11-20] MEDS: LACTATED RINGERS 1,000 ML 100 ML IV CONT (21:04)
[2024-11-20] MEDS: traZODone HCL 50 MG TABLET 100 MG PO (21:04)
[2024-11-20] MEDS: rOPINIRole HCL 1 MG TABLET PO (21:05)
--- NOTE | 2024-11-20 21:17 | PC.NURSE ---
On 11/20/24, the TABLE RUNNER, Bharati Kennedy, provided care and completed [facility] documentation on this patient. I have reviewed the TABLE RUNNER's documentation and agree with the findings.
--- NOTE | 2024-11-20 21:27 | ADMGEN ---
This patient, Venancio Sutherland, was admitted to 2 Medical Room 255-01. Patient/family oriented to hospital policies and general routines including ID bracelet, bed and alarms, visiting hours, pain management, procedures, bathroom and other care routines, personal items, smoking policy, room service/diet, and visiting hours. Information on how to activate the Rapid Response Team has been discussed. Patient/Family are encouraged to report perceived risks to care and to ask questions if they do not understand what they are told or what they should do.
[2024-11-21] VITALS (8 sets, daily range): BP systolic 106–122; BP diastolic 48–71; PULSE 79–95; RESP 16–20; TEMP 36.6–37.2; O2SAT 97–98
[2024-11-21] MEDS: chlordiazePOXIDE (*CRX) 25 MG CAPSULE 50 MG PO ×2 (00:19→05:41)
[2024-11-21] MEDS: ONDANSETRON INJ 4 MG/2 ML VIAL IV PUSH (00:49)
[2024-11-21] MEDS: LORazepam INJ (*CRX) 2 MG/ML VIAL IV PUSH ×2 (01:52→05:40)
[2024-11-21] MEDS: LACTATED RINGERS 1,000 ML 100 ML IV CONT (05:41)
[2024-11-21 06:25] LABS: Basophils Absolute Auto 0.1 K/mm3 (0.0-0.1); Basophils Percent Auto 0.4 % (0.2-1.2); Eosinophils Absolute Auto 0.1 K/mm3 (0-0.3); Eosinophils Percent Auto 0.4 % (0-4.4); Hematocrit 38.1 % (42.0-52.0); Hemoglobin 13.6 g/dL (14.0-18.0); Immature Granulocyte Absolute 0.07 K/mm3 (0.00-0.031); Immature Granulocyte Percent A 0.5 % (0-0.5); Lymphocytes Absolute Auto 3.01 K/mm3 (0.9-3.2); Lymphocytes Percent Auto 22.2 % (18.3-44.2); Mean Corpuscular HGB Conc 35.7 g/dl (32-36); Mean Corpuscular Volume 92.5 fl (80-100); Mean Platelet Volume 8.9 fl (7.4-10.4); Monocytes Absolute Auto 1.7 K/mm3 (0.1-0.6); Monocytes Percent Auto 12.4 % (2.6-8.5); Neutrophils Absolute Auto 8.7 K/mm3 (1.3-6.7); Neutrophils Percent Auto 64.1 % (45.5-73.1); Platelet Count Result 356 k/mm3 (150-375); Red Blood Count 4.12 M/mm3 (4.6-6.20); Red Cell Distribution Width 12.7 % (11.5-14.5); White Blood Count 13.5 K/mm3 (4.5-10.0)
[2024-11-21 06:47] LABS: Alanine Aminotransferase 23 U/L (6-50); Albumin Level 3.8 g/dL (3.5-5.1); Alkaline Phosphatase 61 U/L (38-126); Anion Gap 12 mmol/L (4-12); Aspartate Amino Transferase 22 U/L (17-59); Bilirubin,Total 0.8 mg/dL (0.2-1.3); Blood Urea Nitrogen 10 mg/dL (9-20); Carbon Dioxide 29 mmol/L (22-30); Chloride 91 mmol/L (98-107); Estimated CRCL calculation 161 ml/min; Estimated Glomerular Filt Rate > 60; Glucose 81 mg/dL (65-110); Magnesium 2.8 mg/dL (1.6-2.3); Sodium 132 mmol/L (137-145)
[2024-11-21] MEDS: FOLIC ACID 1 MG TABLET PO (09:43)
[2024-11-21] MEDS: POTASSIUM CHLORIDE 20 MEQ ER TABLET 40 MEQ PO (09:43)
[2024-11-21] MEDS: THIAMINE HCL 100 MG TABLET PO (09:43)
[2024-11-21] MEDS: MULTIVITAMINS THERAPEUTIC TAB (*BKC) 1 TABLET PO (09:43)
[2024-11-21] MEDS: ENOXAPARIN 40 MG/0.4 ML SYRINGE SUB-Q (09:43)
--- NOTE | 2024-11-21 10:35 | PM.DS ---
DS: Admitting Diagnosis Discharge Date 11/21/2024 Admitting Diagnosis alcohol withdrawal/ hyponatremia/ hypokalemia DS: Discharge Diagnosis Discharge Diagnosis (1) Alcohol withdrawal: Code(s): F10.939 - Alcohol use, unspecified with withdrawal, unspecified Status: Acute Assessment and Plan: discharged on multivitamin folic acid educated on immediate alcohol cessation follow-up with counselor (2) Acute hyponatremia: Code(s): E87.1 - Hypo-osmolality and hyponatremia Status: Acute Assessment and Plan: resolve with IV fluids (3) Depression: Code(s): F32.A - Depression, unspecified Status: Acute Assessment and Plan: Patient was previously on Effexor and Seroquel stopped taking when he started drinking again resume medication 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 and to resume medications (4) Anxiety: Code(s): F41.9 - Anxiety disorder, unspecified Status: Acute Assessment and Plan: see Above #2 (5) Acute hypokalemia: Code(s): E87.6 - Hypokalemia Status: Acute Assessment and Plan: potassium replenished (6) Leukocytosis: Code(s): D72.829 - Elevated white blood cell count, unspecified Status: Acute Assessment and Plan: resolved with IV fluids (7) Cannabis abuse: Code(s): F12.10 - Cannabis abuse, uncomplicated Status: Inactive Assessment and Plan: Encouraged cessation Plan Disposition: discharged home DS: Summary Hospital Course Reason for hospitalization: alcohol withdrawal/ hyponatremia/ hypokalemia Hospital Course: Patient is a 24-year-old male presented to the emergency department with his mother reporting alcohol withdrawal symptoms. Patient and mother both report patient has history of binge drinking and attempted to stop drinking 5 days ago however has had a constant nausea vomiting and inability to keep any oral intake down. Patient also reporting severe anxiety and palpitations with fevers, chills and diaphoresis. There was reported patient drinks a 5th of vodka daily when on his drinking binge he states he has been intermittently drinking due to his severe anxiety and depression was previously on Effexor and Seroquel but abruptly stop them both when he began drinking again. Patient reported he attempted to alleviate his symptoms with smoking marijuana and eating marijuana gummies but had no relief. Patient was found to have a WBC of 26.5 likely reactive, hypokalemia, hyponatremia secondary to dehydration and was positive for cannabis. Patient was then admitted to the medical unit for further evaluation and treatment alcohol withdrawal may have some underlying Cannibis induced hyperemesis. Viral panel was negative. Patient had overall improvement overnight was able to tolerate oral intake. vitals improved was in sinus rhythm, no further diaphoresis or tremors. Sodium and potassium improved with replenishment and patient reported feeling overall better. patient was provided resources for rehab centers he is currently at [facility] resumed his antidepressive medications but reinforced the need to avoid alcohol. patient acknowledged and agreed with discharge plan he was discharged home at which time I also prescribed a multivitamin and folic acid. Status at Discharge Functional status at discharge: independent ambulation Overall status at discharge: patient is back to baseline Time Spent with Patient Time attestation: Total time spent providing and/or coordinating discharge services: Time spent: Greater than 30 minutes Exam Narrative: GENERAL: Alert and oriented x 3. No acute distress. Mother at bedside providing most of the information EYES: PERRLA. HEENT: Dry mucous membranes. LUNGS: Clear to auscultation bilaterally. No accessory muscle use. CARDIOVASCULAR: Regular rate and rhythm. No murmur. No JVD. S1-S2 ABDOMEN: Soft, tender and non-distended. No palpable masses. EXTREMITIES: No edema. Non-tender SKIN: No rashes or lesions. Skin warm, dry. NEUROLOGIC: No focal neurological deficits. CN II-XII grossly intact PSYCHIATRIC: Withdrawn mood and affect. Minimal eye contact DS: Data Data Completed and Pending Labs on day of discharge: Labs from last 24 hours 11/21/24 11/20/24 11/20/24 05:40 16:34 11:05 WBC 13.5 H RBC 4.12 L Hgb 13.6 L Hct 38.1 L MCV 92.5 MCH 33.0 MCHC 35.7 RDW 12.7 Plt Count 356 MPV 8.9 Immature Gran % (Auto) 0.5 Neut % (Auto) 64.1 Lymph % (Auto) 22.2 [place] % (Auto) 12.4 H Eos % (Auto) 0.4 Baso % (Auto) 0.4 Lymph # (Auto) 3.01 [place] # (Auto) 1.7 H Eos # (Auto) 0.1 Baso # (Auto) 0.1 Abs Immat Gran (auto) 0.07 H Absolute Neuts (auto) 8.7 H Absolute Nucleated RBC 0.000 Nucleated RBC % 0.0 Sodium 132 L Potassium 3.0 L Chloride 91 L Carbon Dioxide 29 Anion Gap 12 BUN 10 D Creatinine 0.65 L Estim Creat Clear Calc 161 Estimated GFR > 60 Glucose 81 Calcium 8.0 L Magnesium 2.8 H Total Bilirubin 0.8 AST 22 ALT 23 Alkaline Phosphatase 61 Total Protein 7.0 Albumin 3.8 Urine Color Dark yellow Urine Appearance Clear Urine pH 6.0 Ur Specific [place] 1.033 Urine Protein 1+ H Urine Glucose (UA) Negative Urine Ketones 4+ H Ur Blood (Man) Negative Urine Nitrate Negative Urine Bilirubin 2+ H Urine Urobilinogen 1.0 Leukocyte Esterase Rfl Negative Urine RBC 3-5 H Urine WBC 0-5 Ur Squamous Epith Cells None seen Urine Bacteria None seen Urine Casts 3-5 Urine Opiates Screen Negative Urine Methadone Screen Negative Ur Barbiturates Screen Negative Ur Phencyclidine Scrn Negative Ur Amphetamine Screen Negative U Benzodiazepines Scrn Negative Urine Cocaine Screen Negative U Cannabinoids Screen Positive A Ethyl Alcohol Influenza A (RT-PCR) Negative Influenza B (RT-PCR) Negative RSV (RT-PCR) Negative SARS-CoV-2 RNA (RT-PCR) Negative 11/20/24 09:52 WBC RBC Hgb Hct MCV MCH MCHC RDW Plt Count MPV Immature Gran % (Auto) Neut % (Auto) Lymph % (Auto) [place] % (Auto) Eos % (Auto) Baso % (Auto) Lymph # (Auto) [place] # (Auto) Eos # (Auto) Baso # (Auto) Abs Immat Gran (auto) Absolute Neuts (auto) Absolute Nucleated RBC Nucleated RBC % Sodium Potassium Chloride Carbon Dioxide Anion Gap BUN Creatinine Estim Creat Clear Calc Estimated GFR Glucose Calcium Magnesium Total Bilirubin AST ALT Alkaline Phosphatase Total Protein Albumin Urine Color Urine Appearance Urine pH Ur Specific [place] Urine Protein Urine Glucose (UA) Urine Ketones Ur Blood (Man) Urine Nitrate Urine Bilirubin Urine Urobilinogen Leukocyte Esterase Rfl Urine RBC Urine WBC Ur Squamous Epith Cells Urine Bacteria Urine Casts Urine Opiates Screen Urine Methadone Screen Ur Barbiturates Screen Ur Phencyclidine Scrn Ur Amphetamine Screen U Benzodiazepines Scrn Urine Cocaine Screen U Cannabinoids Screen Ethyl Alcohol < 10 Influenza A (RT-PCR) Influenza B (RT-PCR) RSV (RT-PCR) SARS-CoV-2 RNA (RT-PCR) Imaging Radiologist's impression: CT scan - abdomen: Radiologist's impression: EXAMINATION: CT abdomen pelvis w con DATE: 11/20/2024 12:23 INDICATION: Vomiting. Epigastric pain. Alcohol withdrawal. TECHNIQUE: Computed tomography (CT) of the abdomen and pelvis was performed with 100 mL Omnipaque-350 intravenous contrast. Automated exposure control and iterative reconstruction technique were employed. The dose-length product was 267.04 mGy-cm. COMPARISON: None FINDINGS: Lung bases are clear. Heart size is normal. No pericardial or pleural effusion. Small sliding-type hiatal hernia. Liver, gallbladder, spleen, pancreas, bilateral adrenal glands and kidneys are normal. Bladder is normal. Bowels including the appendix are normal. No free intraperitoneal gas or fluid. No pathologically enlarged abdominal or pelvic lymphadenopathy. Bones are unremarkable. IMPRESSION: 1. No acute intra-abdominal/pelvic process. 2. Small sliding-type hiatal hernia. Discharge Plan Discharge Attending physician on discharge: Bernardo Titus Consulting providers: Yumiko Miner Discharging Clinician: Yumiko Miner Anticipated Discharge Date/Time: 11/21/24 10:31 Patient Disposition: Home, Self-Care Activity: may shower and as tolerated Diet: as tolerated Discharge Instructions: Alcohol withdrawal: Encouraged immediate cessation I have started you on a multivitamin and folic acid daily Please resume your anti depressant/anti ascites medication Continue to follow-up with your counselor outpatient Rehab resources provided by care coordination How can you care for yourself at home? ? Keep track of any new symptoms or changes in your symptoms. ? Rest until you feel better. ? Be safe with medicines. Take your medicines exactly as prescribed. Call your doctor if you think you are having a problem with your medicine. ? Do not drive after taking a prescription pain medicine. ? Ensure to follow-up with primary care physician as indicated and provide updated medication list provided to you at discharge. When should you call for help? Call 911 anytime you think you may need emergency care. For example, call if: ? You passed out (lost consciousness). Call your doctor now or seek immediate medical care if: ? You have new symptoms like fever, difficulty breathing, Chest pain, vomiting, or rash. ? You have new or different pain. ? You are confused and are having trouble thinking clearly. ? Your symptoms are getting worse. Watch closely for changes in your health, and be sure to contact your doctor if: ? You do not get better as expected. Patient Instructions: Antibiotic Form, Abuse of Alcohol (DC), Alcohol Withdrawal (DC), Alcohol Dependence (DC) Patient Language: Romanian Stand Alone Forms: General Discharge Information Follow-up/Referrals: Mao,Yissel Dumont PA [Primary Care Provider] - 2 Weeks Discharge Medications: New trazodone 50 mg Tablet 100 mg PO HS PRN (Reason: Insomnia) Qty: 30 0RF folic acid 1 mg Tablet 1 mg PO DAILY 30 Days Qty: 30 0RF multivitamin with folic acid [Thera] 400 mcg Tablet 1 tablet PO QAM Qty: 30 0RF Continued quetiapine 25 mg tablet 25 mg PO DAILY Qty: 30 0RF venlafaxine 37.5 mg capsule,extended release 24hr 75 mg PO QPM Qty: 60 0RF quetiapine 200 mg tablet 200 mg PO QHS Qty: 30 0RF venlafaxine 150 mg capsule,extended release 24hr 150 mg PO DAILY Qty: 30 0RF Date of admission: 11/20/24 14:05 Primary Care Provider: Mao,Yissel Dumont Admitting Provider: Noam Avilez Attending physician on admission: Noam Avilez Condition: Guarded Prognosis Quality VTE Prophylaxis VTE prophylaxis: pharmacologic ordered -Patient's previous records reviewed on admission -ER notes reviewed in detail on admission -discussed all findings and current treatment plan with patient/Family/POA -Consultations reviewed for recommendations -Patient's disposition for safe discharge discussed with director case Dictation performed by [employer] direct speech recognition software, therefore turner machine operator variants and typographical errors may occur. Hospitalist MIPS Heart Failure (Exclusion) Patient has history of Heart Transplant or Left Ventricular Assistive Device?: No IF YES, STOP HERE Heart Failure (Qualifier) Patient has current or prior documentation of LVEF less than or equal to 40%, or mod/servere depressed LVSF?: No IF NO, STOP HERE
--- NOTE | 2024-11-21 12:57 | PC.NURSE ---
[id number] patient resting in bed, physician at bedside. She discontinued IV K and gave the PO only as she stated I am discharging him . Patient is calm and cooperative. No complaints of pain, nausea, or vomiting. He denies any needs at this time. UPDATE: 1366 patient discharged. He had all his belongings, IV's removed with no bleeding and catheters intact. He was able to ambulate to hospital entrance without difficulty. His mother took him home. (linens stripped and trash thrown away)
== END 2024-11-21 12:40 | disposition home or self-care (01) ==
LOC: ANHED 11:58 → ANH2MED 11-21 06:58 → ANH3MEDSUR 11-22 09:43
PROVIDERS: Emergency Medicine; Nurse Practitioner Family; Admitting Provider Internal Medicine; Emergency Provider Emergency Medicine; PCP Physician Assistant; Visit Provider General Practice
DX: F10.939 Alcohol use, unspecified with withdrawal, unspecified (principal); E87.1 Hypo-osmolality and hyponatremia; E87.6 Hypokalemia; F32.A Depression, unspecified; F41.9 Anxiety disorder, unspecified; D72.829 Elevated white blood cell count, unspecified; F12.10 Cannabis abuse, uncomplicated; Z20.822 Contact with and (suspected) exposure to COVID-19; Z79.899 Other long term (current) drug therapy
CPT/HCPCS: 36415; 71045; 74177; 80053; 80307; 81001; 82077; 83690; 83735; 85025; 87637; 93005; 96372; 96374; 96375; 96376; 99285; A9270; G0378; G0379; J1650; J2060; J2405; J3411; J3475; J3480; J7030; J7040; J7120; Q9967

== ENCOUNTER 2025-06-22 13:48 | Emergency (ER) | payer OTHER, SELFPAY ==
[2025-06-22] VITALS (18 sets, daily range): BP systolic 106–153; BP diastolic 75–103; PULSE 83–112; RESP 9–36; TEMP 36.9; O2SAT 96–100
--- OUTSIDE RECORDS SUMMARY | 2025-06-22 13:53 | XMS_ITS | Clinical Summary ---
Author Organization [facility] Address [address] [place] [address] Phone Care Team Providers Care Windscreen Fitter Name Role Phone Unavailable Primary Care Provider Unavailabl e Allergies No known active allergies Medications No known medications Active Problems Problem Noted Date Diagnosed Date Gastroesophageal reflux disease without esophagi tis 10/23/2016 Depression 12/06/2015 Non-intractable vomiting with nausea 12/06/2015 Immunizations Immunization Administration Dates Next Due DTAP VACCINE 09/02/2001,02/20/2001,2000 DTAP VACCINE, UNSPECIFIED FORMULATION 05/06/2005 DTP Vaccine 01/27/2002 HEP B/HIB Combined Vaccine 09/02/2001 Hepatitis A Vaccine,unspecified Formulation 04/22,07/27/2003 Hepatitis B Vaccine, Pediatric/adolescent 2000,2000 Hib Vaccine,unspecified Formulation 08/01/2003,0 02/20/2001,2000 Human Papillomavirus Vaccine (HPV), quadrivalent 03/14/2015 Inactivated Polio Vaccine 01/27/2002,02/20/2001, 2000 Influenza Vaccine, Quadrivalent, PF 10/28/2018 MMR Vaccine 05/03/2005,11/26/2001 Meningococcal Vaccine 03/14/2015 Pneumococcal PCV, Unspecified Formulation 2002 Pneumococcal Vaccine Peds - 7 Valent 09/02/2001, 02/20/2001,2000 Polio Vaccine,unspecified Formulation 05/01/2005 ,09/02/2001 TDAP Vaccine 12/03/2010 Varicella Vaccine Live 03/14/2015,11/26/2001 Family History Medical History Relation Name Comments No Known Problems Father Cervical Cancer Mother Depression Mother Other-comment Mother ANXIETY Relation Name Status Comments Father Alive Mother Alive Social History Tobacco Use Types Packs/Day Years Used Date Smoking Tobacco: Every Day Cigarettes 1 1 Smokeless Tobacco: Never Tobacco Cessation:Ready to Q uit: No; Counseling Given: Yes Alcohol Use Standard Drinks/Week Comments No 0 (1 standard drink = 0.6 oz pur e alcohol) none PHQ-2 Answer Date Recorded PHQ-2 Score 0 06/18/2019 Sexually Active Control Partners Comments Never Sex and Gender Information Value Date Recorded Sex Assigned at Not on file 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 Gender Identity Not on file Sexual Orientation Not on file Occupation Industry Job Start Date Job End Date student Not on file Not on file Not on file Last Filed Vital Signs Vital Sign Reading Time Taken Comments Blood Pressure 102/54 06/18/2019 1:44 PM CDT Pulse 89 06/18/2019 1:44 PM CDT Temperature 37.1 C (98.8 F) 06/18/2019 1:44 PM CDT Respiratory Rate 14 06/18/2019 1:44 PM CDT Oxygen Saturation 98% 06/18/2019 1:44 PM CDT Inhaled Oxygen Concentration - - Weight 64.5 kg (142 lb 3.2 oz) 06/18/2019 1:44 P M CDT Height 177.8 cm (5' 10) 06/18/2019 1:44 PM CDT Body Mass Index 20.4 06/18/2019 1:44 PM CDT Plan of Treatment Health Maintenance Due Date Last Done Comments Hepatitis C Virus (HCV) Screening 2000 Human Papillomavirus (HPV) Immunization (2 - Male 2-dose series) 09/13/2015 03/14/2015 DTaP/Tdap/Td Immunization (7 - Td or Tdap) 12/03/2020 12/03/2010, 05/06/2005, 01/27/2002, Additional history exists Influenza Immunization (#1) 2025 10/28/2018 SARS-COV-2 Immunization ( - season) 2025 Respiratory Syncytial Virus (RSV) Immunization (Adult) (1 - 1-dose 75+ series) 2075 Hepatitis B Immunization Completed 001, 2000, 2000 Pneumococcal Immunization Combined Aged Out 07/27/2003, 09/02/2001, 02/20/2001, Additional history exists No longer eligible based on patient's age to complete this topic Meningococcal Immunization (ACWY) Aged Out 03/14/2015 No longer eligible based on patient's age to complete this topic Rotavirus Immunization Aged Out No lo nger eligible based on patient's age to complete this topic Insurance MEDICAID [place]
--- OUTSIDE RECORDS SUMMARY | 2025-06-22 13:53 | XMS_ITS | Clinical Summary ---
Author Organization [facility] Address [address] [place] [address] Care Team Providers Care Director Of Cardiology Name Role Phone Unavailable Primary Care Provider Unavailabl e Source Comments [facility] [employer],non-owned Affiliates and Associated Physician Practices is amultiple site organization consisting of ambulatory clinics and hospital sitesin [place], [place], [place] and [place]. This disclosure is being madepursuant to the Care Everywhere program and may not contain all information available regarding this patient. 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 Gender Identity Not on file Sexual Orientation Not on file Plan of Treatment Health Maintenance Due Date Last Done Comments HIV SCREENING 2015 HPV VACCINE (1 - Male 3-dose series) 2015 HEPATITIS C SCREENING 09/01/2018 DTAP/TDAP/TD VACCINES (1 - Tdap) 2019 HEPATITIS B VACCINE (1 of 3 - 19+ 3-dose series) 2019 DEPRESSION SCREENING 09/22/2024 COVID-19 VACCINE (1 - 2023-2 5 season) 2025 INFLUENZA VACCINE (#1) 2025 ZOSTER VACCINE (1 of 2) 2050 HIB VACCINE Aged Out No longer eligi ble based on patient's age to complete this topic MENINGOCOCCAL (Group B) VACC INE SHARED DECISION-MAKING Aged Out No longer eligibl e based on patient's age to complete this topic MENINGOCOCCAL GROUPS A/C/Y/W VACCINE Aged Out No longer eligible b ased on patient's age to complete this topic PNEUMOCOCCAL VACCINE Aged Out No long er eligible based on patient's age to complete this topic Insurance [facility] MED[place]ID [id number]
[2025-06-22] MEDS: LACTATED RINGERS 1,000 ML 999 ML IV CONT ×2 (16:05→16:49)
[2025-06-22] MEDS: ONDANSETRON INJ 4 MG/2 ML VIAL IV PUSH (16:05)
[2025-06-22 16:08] LABS: Hematocrit 53.7 % (42.0-52.0); Hemoglobin 19.3 g/dL (14.0-18.0); Immature Granulocyte Percent A 0.6 % (0-0.5); Lymphocytes Absolute Auto 4.75 K/mm3 (0.9-3.2); Mean Corpuscular HGB Conc 35.9 g/dl (32-36); Mean Corpuscular Hemoglobin 32.2 pg (26-34); Mean Corpuscular Volume 89.6 fl (80-100); Nucleated Red Blood Cells Absolute Auto 0.000 K/mm3 (0.0-0.012); Nucleated Red Blood Cells Perc 0.0 % (0.0-0.2); Platelet Count Result 349 k/mm3 (150-375); Red Blood Count 5.99 M/mm3 (4.6-6.20); White Blood Count 16.3 K/mm3 (4.5-10.0)
--- OUTSIDE RECORDS SUMMARY | 2025-06-22 16:12 | XMS_ITS | Clinical Summary ---
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
--- OUTSIDE RECORDS SUMMARY | 2025-06-22 16:12 | XMS_ITS | Clinical Summary ---
Author Organization [facility] Address [address] [place] [address] Care Team Providers Care Smoked Meat Preparer Name Role Phone Unavailable Primary Care Provider Unavailabl e Source Comments [facility] [employer],non-owned Affiliates and Associated Physician Practices is amultiple site organization consisting of ambulatory clinics and hospital sitesin [place], [place], [place] and [place]. This disclosure is being madepursuant to the Care Everywhere program and may not contain all information available regarding this patient. 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
--- NOTE | 2025-06-22 16:15 | ED_ITS ---
HPI - General Adult General Chief complaint: Nausea/Vomiting/Diarrhea Stated complaint: Nausea/vomiting x 4 days Time Seen by Provider: 06/22/25 15:32 History of Present Illness HPI narrative: 24-year-old male presents to the emergency department for evaluation for nausea vomiting for the last 4 days. Patient did drink alcohol approximately 4 days ago and this may have triggered his nausea and vomiting. Patient does admit to daily THC use. Patient states he does have some issues with for current nausea and vomiting. Patient has never been diagnosed with cannabinoid hyperemesis syndrome. Related Data Allergies Allergy/AdvReac Type Severity Reaction Status Date / Time No Known Allergies Allergy Verified 06/22/25 14:13 Review of Systems 2 Review of Systems: All systems reviewed & are unremarkable except as noted in HPI and below PMFSH Past Medical History Medical History (Updated 06/22/25 @ 19:09 by Lenny Lema MD) Depression Anxiety Surgical History Surgical History No history of previous surgery Social History Social History Smoking status: Current every day smoker Alcohol intake: current Substance use: current Substance use type: marijuana Do You Feel Safe in your Home?: Yes Lack of Transportation: No Lack of Food: Never True Current Housing: I Have Housing Concerned About Future Housing: No Difficulty Paying Gas/Electric Bills: No Difficulty Paying for Meds: No Currently Unemployed: No Education: High School Diploma/GED Difficulty w/ Childcare or Family Care: No Spiritual care concerns: No Exam 2 Narrative: APPEARANCE: Ill-appearing HEAD: normocephalic, atraumatic. EYES: PERRLA/EOMI, conjunctivae clear. NOSE: Normal no drainage EARS:TMS clear with good light reflex. THROAT: Pharynx clear, no exudate. NECK: Supple. No adenopathy, no masses. RESPIRATORY: Airway patent, respirations nonlabored. Clear to auscultation bilaterally, no rales, rhonchi, wheezing. CARDIOVASCULAR: Regular rate and rhythm without murmurs rubs or gallops. ABDOMINAL: Soft, nontender, nondistended, normal bowel sounds MUSCULOSKELETAL: Moves all extremities. Strength/ROM intact, No edema, No calf tenderness. NEURO: Alert. Cranial nerves II through XII intact. Good gait. Good coordination SKIN: Warm, dry. Normal Color Course Vital Signs Vital signs: Vital Signs Temperature 98.4 F 06/22/25 14:11 Pulse Rate 104 H 06/22/25 14:11 Respiratory Rate 16 06/22/25 14:11 Blood Pressure 106/75 06/22/25 14:11 Pulse Oximetry 98 06/22/25 14:11 Oxygen Delivery Room Air 06/22/25 14:11 Temperature 98.4 F 06/22/25 14:11 Pulse Rate 93 06/22/25 16:00 Respiratory Rate 12 06/22/25 16:00 Blood Pressure 144/86 H 06/22/25 16:00 Pulse Oximetry 99 06/22/25 16:00 Oxygen Delivery Room Air 06/22/25 15:36 Medical Decision Making MDM Narrative Medical decision making narrative: 24-year-old male presents emergency department for evaluation for nausea vomiting over the last 4 days. Patient is afebrile but does have a leukocytosis of 16.3 hemoglobin of 19.3. Patient did have a low potassium 2.8 this replaced both orally and through IV. Patient was also treated with 2 L of lactated Ringer's. No acute abnormalities on his UA. On re-evaluation patient did feel improved. Patient was advised to refrain from BHC different from alcohol. Patient was provided Zofran and Reglan for nausea control and patient was instructed to take omeprazole as directed for the next 14 days for underlying gastritis. Patient family are comfortable the plan of discharge and close follow-up. Differential Diagnosis Differential Diagnosis: Colitis, diverticulitis, appendicitis cannabinoid hyperemesis syndrome alcoholic gastritis, esophagitis Vital Signs Vital Signs: Vital Signs Temperature 98.4 F 06/22/25 14:11 Pulse Rate 104 H 06/22/25 14:11 Respiratory Rate 16 06/22/25 14:11 Blood Pressure 106/75 06/22/25 14:11 Pulse Oximetry 98 06/22/25 14:11 Oxygen Delivery Room Air 06/22/25 14:11 Temperature 98.4 F 06/22/25 14:11 Pulse Rate 93 06/22/25 16:00 Respiratory Rate 12 06/22/25 16:00 Blood Pressure 144/86 H 06/22/25 16:00 Pulse Oximetry 99 06/22/25 16:00 Oxygen Delivery Room Air 06/22/25 15:36 Lab Data Lab results reviewed: Yes I reviewed the patient's lab results. 06/22/25 16:02 06/22/25 16:02 Labs: Lab Results 06/22/25 06/22/25 Range/Units 16:02 17:17 WBC 16.3 H (4.5-10.0) K/mm3 RBC 5.99 (4.6-6.20) M/mm3 Hgb 19.3 H D (14.0-18.0) g/dL Hct 53.7 H (42.0-52.0) % MCV 89.6 (80-100) fl MCH 32.2 (26-34) pg MCHC 35.9 (32-36) g/dl RDW 12.1 (11.5-14.5) % Plt Count 349 (150-375) k/mm3 MPV 8.7 (7.4-10.4) fl Immature Gran % (Auto) 0.6 H (0-0.5) % Neut % (Auto) 55.1 (45.5-73.1) % Lymph % (Auto) 29.2 (18.3-44.2) % [place] % (Auto) 14.0 H (2.6-8.5) % Eos % (Auto) 0.6 (0-4.4) % Baso % (Auto) 0.5 (0.2-1.2) % Lymph # (Auto) 4.75 H (0.9-3.2) K/mm3 [place] # (Auto) 2.3 H (0.1-0.6) K/mm3 Eos # (Auto) 0.1 (0-0.3) K/mm3 Baso # (Auto) 0.1 (0.0-0.1) K/mm3 Abs Immat Gran (auto) 0.09 H (0.00-0.031) K/mm3 Absolute Neuts (auto) 9.0 H (1.3-6.7) K/mm3 Absolute Nucleated RBC 0.000 (0.0-0.012) K/mm3 Nucleated RBC % 0.0 (0.0-0.2) % Sodium 123 L (137-145) mmol/L Potassium 2.8 L* (3.4-5.0) mmol/L Chloride 77 L (98-107) mmol/L Carbon Dioxide 33 H (22-30) mmol/L Anion Gap 13 H (4-12) mmol/L BUN 22 H D (9-20) mg/dL Creatinine 1.00 (0.7-1.3) mg/dL Estim Creat Clear Calc 107 ml/min Estimated GFR > 60 (59 - ) Glucose 101 (65-110) mg/dL Lactic Acid 1.2 (0.7-2.0) mmol/L Calcium 9.9 (8.4-10.2) mg/dL Total Bilirubin 1.4 H (0.2-1.3) mg/dL AST 37 (17-59) U/L ALT 35 (6-50) U/L Alkaline Phosphatase 92 (38-126) U/L Total Protein 9.0 H (6.3-8.2) g/dL Albumin 4.9 (3.5-5.1) g/dL Lipase 62 (23-300) U/L Urine Color Yellow (Yellow) Urine Appearance Clear (Clear) Urine pH 6.0 (5.0-9.0) Ur Specific [place] 1.010 (1.001-1.035) Urine Protein Negative (Negative) mg/dL Urine Glucose (UA) Negative (Negative) mg/dL Urine Ketones 1+ H (Negative) mg/dL Ur Blood (Man) Trace (Negative) Urine Nitrate Negative (Negative) Urine Bilirubin Negative (Negative) Urine Urobilinogen 0.2 (<2.0) mg/dL Add Ur Microanalysis Reviewed Leukocyte Esterase Rfl Negative (Negative) SELAM/UL Urine RBC 0-2 (0-2) /hpf Urine WBC 0-5 (0-3) /hpf Ur Squamous Epith Cells None seen (Few) /hpf Urine Bacteria None seen /hpf Urine Casts 0-2 Discharge Plan Discharge Clinical Impression: Nausea & vomiting, Acute alcoholic gastritis Patient Disposition: Home Condition: Stable Instructions: Antibiotic Form, Clear Liquid Diet (ED), Diet for Stomach Ulcers and Gastritis (ED), Acute Nausea and Vomiting (ED) Additional Instructions: Famotidine as directed for the next 14 days. Clear liquid diet for the next 1-3 days. Zofran as needed for nausea control. Reglan as needed for additional nausea control. Maalox as needed for epigastric burning. Advance to bland diet as tolerated. Refrain from alcohol and THC consumption. Have close follow-up with GI. If you have any worsening symptoms then please call or return to the emergency department. Patient Language: [place] Prescriptions: New ondansetron 4 mg tablet,disintegrating 4 mg PO Q8H PRN (Reason: nausea and vomiting) Qty: 14 0RF metoclopramide HCl [Reglan] 10 mg tablet 10 mg PO Q6H PRN (Reason: nausea and vomiting) Qty: 14 0RF famotidine 20 mg tablet 20 mg PO DAILY 14 Days Qty: 14 0RF No Action trazodone 50 mg Tablet 100 mg PO HS PRN (Reason: Insomnia) Qty: 30 0RF folic acid 1 mg Tablet 1 mg PO DAILY 30 Days Qty: 30 0RF multivitamin with folic acid [Thera] 400 mcg Tablet 1 tablet PO QAM Qty: 30 0RF quetiapine 25 mg tablet 25 mg PO DAILY Qty: 30 0RF venlafaxine 37.5 mg capsule,extended release 24hr 75 mg PO QPM Qty: 60 0RF quetiapine 200 mg tablet 200 mg PO QHS Qty: 30 0RF venlafaxine 150 mg capsule,extended release 24hr 150 mg PO DAILY Qty: 30 0RF Follow-up/Referrals: Mao,LILLIAN Mahoney [Primary Care Provider, Unknown] Phi Wadsworth MD [Physician, Gastroenterology]
[2025-06-22 16:23] LABS: Alanine Aminotransferase 35 U/L (6-50); Albumin Level 4.9 g/dL (3.5-5.1); Alkaline Phosphatase 92 U/L (38-126); Anion Gap 13 mmol/L (4-12); Aspartate Amino Transferase 37 U/L (17-59); Bilirubin,Total 1.4 mg/dL (0.2-1.3); Blood Urea Nitrogen 22 mg/dL (9-20); Calcium 9.9 mg/dL (8.4-10.2); Carbon Dioxide 33 mmol/L (22-30); Chloride 77 mmol/L (98-107); Estimated CRCL calculation 107 ml/min; Estimated Glomerular Filt Rate > 60; Glucose 101 mg/dL (65-110); Lipase 62 U/L (23-300); Potassium 2.8 mmol/L (3.4-5.0); Sodium 123 mmol/L (137-145); Total Protein 9.0 g/dL (6.3-8.2)
[2025-06-22] MEDS: KCL 20 MEQ/SW 100 ML 100 ML 50 MEQ IVPB (17:15)
[2025-06-22] MEDS: HALOPERIDOL LACTATE 5 MG/ML VIAL IM (17:15)
--- NOTE | 2025-06-22 17:31 | PC.NURSE ---
patient still vomiting and not tolerating PO intake, antiemetic administered, will attempt PO potassium when patient is able to tolerate PO intake
[2025-06-22 17:35] LABS: Add Urine Microscopic? YES; Appearance Urine Clear (Clear); Glucose Urine UA Negative (Negative); Leukocyte Esterase Ur Negative LEU/UL (Negative); Need Manual Microscopic Reviewed; Nitrate Urine Negative (Negative); Non Pathogenic Casts 0-2; Specific Grav Ur 1.010 (1.001-1.035)
[2025-06-22] MEDS: MIDAZOLAM HCL (*CRX) 2 MG/2 ML VIAL IV PUSH (17:55)
== END 2025-06-22 19:11 | disposition home or self-care (01) ==
PROVIDERS: Emergency Provider Emergency Medicine; PCP Physician Assistant
DX: K29.20 Alcoholic gastritis without bleeding (principal); F10.90 Alcohol use, unspecified, uncomplicated; F41.9 Anxiety disorder, unspecified; F32.A Depression, unspecified; F17.200 Nicotine dependence, unspecified, uncomplicated; Z79.899 Other long term (current) drug therapy
CPT/HCPCS: 36415; 80053; 81001; 83605; 83690; 85025; 96361; 96365; 96372; 96375; 99284; J1630; J2250; J2405; J3480; J7120